=== PATIENT | male | born 1960 | race Caucasian/White ===

== ENCOUNTER 2019-06-07 20:51 | Inpatient (IN) ==
[2019-06-07 21:08] LABS: Basophils # 0.1 10*3/uL (0.0-0.2); Eosinophils # 0.1 10*3/uL (0.0-0.87); Eosinophils % 0.4 % (0.00-10.9); Hematocrit 56.5 VOL% (42.0-52.0); Hemoglobin 18.4 GM/DL (14.0-18.0); Immature Granulocytes % 0.4 %; Immature Granulocytes Absolute 0.05 #; Lymphocytes # 2.4 10*3/uL (1.4-4.0); Lymphocytes % 20.2 % (21.2-54.2); Mean Corpuscular HGB Conc 32.6 GM/DL (32-36); Mean Corpuscular Volume 82.6 FL (87-102); Mean Platelet Volume 10.4 FL (9.6-12.0); Monocytes % 9.1 % (1.7-12.7); Neutrophils % 68.9 % (38.7-73.9); Platelet Count 374 T/CUMM (130-400); Red Blood Count 6.84 MC/CUMM (3.8-5.5); Red Cell Distribution Width 16.2 % (9.3-17.3)
[2019-06-07 21:17] LABS: INR 1.1; PT Patient Result 11.8 SECS (9.6-12.2)
[2019-06-07 21:32] LABS: Bilirubin,Total 1.1 MG/DL (0.2-1.0); Calcium 8.9 MG/DL (8.5-10.1); Osmolality,Calculated 266.7 MOS/KG (273-304); Total Protein 7.3 G/DL (6.4-8.3)
[2019-06-07 22:23] LABS: Apearance,Urine Slightly Hazy (Clear); Bacteria,Urine Many /HPF (Few); Bilirubin,Urine Negative (Negative); Blood, Urine Small mg/dL (Negative); Glucose,Urine (UA) Negative (Negative); Ketones,Urine Negative (Negative); Mucus,Urine Many /LPF (Occasional); Nitrite,Urine Negative (Negative); Protein,Urine 100 MG/DL; RBC,Urine 7 /HPF (0-4); Urine Color Amber (Yellow); Urine Specific Gravity 1.024 (1.001-1.035); WBC,Urine 5 /HPF (0-6)
[2019-06-07 22:26] LABS: Barbiturates Screen,Urine Negative (Negative); Benzodiazepines Screen,Urine Negative (Negative); Cannabinoid Screen,Urine Positive (Negative); Opiate Screen,Urine Negative (Negative); Phencyclidine Screen,Urine Negative (Negative)
[2019-06-07] MEDS ORDERED: ASPIRIN 300 MG SUPP RECTAL STA (22:51)
[2019-06-07] MEDS ORDERED: ATORVASTATIN 40 MG TABLET PO STA (22:51)
[2019-06-07] MEDS ORDERED: ENOXAPARIN 80 MG/0.8 ML SYRINGE SUBCUT STA (22:51)
[2019-06-07] MEDS ORDERED: SODIUM CHLORIDE 0.9% 1,000 ML IV STA (22:52)
[2019-06-07] MEDS ORDERED: GLUCAGON 1 MG VIAL IM PRN (22:54)
[2019-06-07] MEDS ORDERED: DEXTROSE 50% 25 GM/50 ML SYRINGE IV PRN (22:54)
[2019-06-07] MEDS ORDERED: ONDANSETRON 4 MG/2 ML VIAL IV PRN (22:54)
[2019-06-07] MEDS ORDERED: LORazepam 2 MG/1 ML VIAL ONE (23:07)
[2019-06-07] MEDS ORDERED: LORazepam 2 MG/1 ML VIAL IM STA (23:19)
[2019-06-07] MEDS ORDERED: LORazepam 2 MG/1 ML VIAL IV STA (23:19)
[2019-06-08] MEDS: SODIUM CHLORIDE 0.9% 1,000 ML IV SCH ×3 (01:54→21:34)
[2019-06-08] MEDS ORDERED: LORazepam 2 MG/1 ML VIAL IV PRN (04:47)
[2019-06-08] MEDS ORDERED: hydrALAZINE 20 MG/1 ML VIAL IV ONE (05:07)
[2019-06-08 05:46] LABS: Basophils # 0.1 10*3/uL (0.0-0.2); Basophils % 0.8 % (0.0-0.8); Eosinophils # 0.1 10*3/uL (0.0-0.87); Eosinophils % 0.5 % (0.00-10.9); Hematocrit 53.3 VOL% (42.0-52.0); Hemoglobin 17.6 GM/DL (14.0-18.0); Immature Granulocytes % 0.6 %; Immature Granulocytes Absolute 0.08 #; Lymphocytes # 2.3 10*3/uL (1.4-4.0); Lymphocytes % 16.5 % (21.2-54.2); Mean Corpuscular Volume 81.4 FL (87-102); Mean Platelet Volume 10.2 FL (9.6-12.0); Monocytes % 9.5 % (1.7-12.7); Neutrophils % 72.1 % (38.7-73.9); Platelet Count 378 T/CUMM (130-400); Red Blood Count 6.55 MC/CUMM (3.8-5.5); Red Cell Distribution Width 16.1 % (9.3-17.3); White Blood Count 14.2 T/CUMM (4-12)
[2019-06-08 06:10] LABS: Calcium 8.7 MG/DL (8.5-10.1); Osmolality,Calculated 263.5 MOS/KG (273-304); Risk Ratio 6.32; Thyroid Stimulating Hormone 1.99 uIU/ml (0.358-3.74); VLDL CHOLESTEROL 23.2 MG/DL
[2019-06-08] MEDS: amLODIPine 10 MG TABLET PO SCH (09:41)
[2019-06-08] MEDS: ASPIRIN EC 81 MG TABLET PO SCH (09:41)
[2019-06-08] MEDS: LORazepam 2 MG/1 ML VIAL IV PRN ×2 (13:49→17:51)
[2019-06-08] MEDS: HALOPERIDOL 5 MG/ML AMP IM PRN (14:19)
[2019-06-08] MEDS: ENOXAPARIN 40 MG/0.4 ML SYRINGE SUBCUT SCH (21:26)
[2019-06-08] MEDS: ATORVASTATIN 40 MG TABLET PO SCH (21:26)
[2019-06-09] MEDS: SODIUM CHLORIDE 0.9% 1,000 ML IV SCH ×3 (05:18→21:21)
[2019-06-09 05:48] LABS: Basophils # 0.2 10*3/uL (0.0-0.2); Eosinophils % 0.2 % (0.00-10.9); Hematocrit 54.6 VOL% (42.0-52.0); Hemoglobin 17.4 GM/DL (14.0-18.0); Immature Granulocytes % 0.3 %; Immature Granulocytes Absolute 0.05 #; Lymphocytes % 13.3 % (21.2-54.2); Mean Corpuscular HGB Conc 31.9 GM/DL (32-36); Mean Corpuscular Volume 83.7 FL (87-102); Mean Platelet Volume 10.7 FL (9.6-12.0); Monocytes % 13.2 % (1.7-12.7); Platelet Count 396 T/CUMM (130-400); Red Blood Count 6.52 MC/CUMM (3.8-5.5); Red Cell Distribution Width 15.7 % (9.3-17.3); White Blood Count 14.7 T/CUMM (4-12)
[2019-06-09 06:07] LABS: Calcium 8.7 MG/DL (8.5-10.1); Osmolality,Calculated 263.5 MOS/KG (273-304)
[2019-06-09] MEDS: amLODIPine 10 MG TABLET PO SCH (11:12)
[2019-06-09] MEDS: ASPIRIN EC 81 MG TABLET PO SCH (11:12)
[2019-06-09] MEDS: DIAZEPAM 10 MG/2 ML SYRINGE IV SCH ×2 (14:14→21:21)
[2019-06-09] MEDS: ENOXAPARIN 40 MG/0.4 ML SYRINGE SUBCUT SCH (21:21)
[2019-06-09] MEDS: ATORVASTATIN 40 MG TABLET PO SCH (21:28)
[2019-06-09] MEDS: hydrALAZINE 20 MG/1 ML VIAL IV PRN (21:36)
[2019-06-10 05:56] LABS: Basophils # 0.1 10*3/uL (0.0-0.2); Eosinophils # 0.1 10*3/uL (0.0-0.87); Eosinophils % 0.6 % (0.00-10.9); Hemoglobin 17.7 GM/DL (14.0-18.0); Immature Granulocytes % 0.5 %; Immature Granulocytes Absolute 0.07 #; Lymphocytes # 1.7 10*3/uL (1.4-4.0); Lymphocytes % 12.5 % (21.2-54.2); Mean Corpuscular HGB Conc 32.2 GM/DL (32-36); Mean Platelet Volume 10.9 FL (9.6-12.0); Monocytes % 9.4 % (1.7-12.7); Platelet Count 410 T/CUMM (130-400); Red Blood Count 6.63 MC/CUMM (3.8-5.5); Red Cell Distribution Width 15.6 % (9.3-17.3); White Blood Count 13.2 T/CUMM (4-12)
[2019-06-10] MEDS: DIAZEPAM 10 MG/2 ML SYRINGE IV SCH (05:59)
[2019-06-10] MEDS: SODIUM CHLORIDE 0.9% 1,000 ML IV SCH ×4 (06:03→22:03)
[2019-06-10 06:19] LABS: Calcium 8.6 MG/DL (8.5-10.1); Osmolality,Calculated 270.1 MOS/KG (273-304)
[2019-06-10] MEDS: hydrALAZINE 20 MG/1 ML VIAL IV PRN ×2 (07:11→13:01)
[2019-06-10] MEDS: amLODIPine 10 MG TABLET PO SCH ×2 (08:39→16:46)
[2019-06-10] MEDS: ASPIRIN EC 81 MG TABLET PO SCH ×2 (08:39→16:46)
[2019-06-10] MEDS: ATORVASTATIN 40 MG TABLET PO SCH (20:39)
[2019-06-10] MEDS: ENOXAPARIN 40 MG/0.4 ML SYRINGE SUBCUT SCH (20:39)
[2019-06-11] MEDS: hydrALAZINE 20 MG/1 ML VIAL IV PRN (00:59)
[2019-06-11] MEDS: HALOPERIDOL 5 MG/ML AMP IM PRN ×3 (02:32→20:34)
[2019-06-11] MEDS: SODIUM CHLORIDE 0.9% 1,000 ML IV SCH ×3 (06:04→22:50)
[2019-06-11 06:09] LABS: Basophils # 0.1 10*3/uL (0.0-0.2); Eosinophils # 0.1 10*3/uL (0.0-0.87); Eosinophils % 0.9 % (0.00-10.9); Hematocrit 52.1 VOL% (42.0-52.0); Hemoglobin 16.9 GM/DL (14.0-18.0); Immature Granulocytes % 0.2 %; Immature Granulocytes Absolute 0.03 #; Lymphocytes # 1.7 10*3/uL (1.4-4.0); Mean Corpuscular HGB Conc 32.4 GM/DL (32-36); Mean Corpuscular Volume 82.2 FL (87-102); Mean Platelet Volume 10.9 FL (9.6-12.0); Neutrophils % 74.9 % (38.7-73.9); Platelet Count 437 T/CUMM (130-400); Red Blood Count 6.34 MC/CUMM (3.8-5.5); Red Cell Distribution Width 15.5 % (9.3-17.3); White Blood Count 12.1 T/CUMM (4-12)
[2019-06-11 06:38] LABS: Albumin 3.1 G/DL (3.4-5.0); Bilirubin,Direct 0.22 MG/DL (0.0-0.20); Bilirubin,Indirect 0.9 MG/DL (0.0-1.0); Bilirubin,Total 1.1 MG/DL (0.2-1.0); Calcium 8.6 MG/DL (8.5-10.1); Osmolality,Calculated 272.8 MOS/KG (273-304); Total Protein 6.7 G/DL (6.4-8.3)
[2019-06-11] MEDS: LORazepam 2 MG/1 ML VIAL IV PRN ×2 (10:30→20:35)
[2019-06-11] MEDS: amLODIPine 10 MG TABLET PO SCH (11:02)
[2019-06-11] MEDS: ASPIRIN EC 81 MG TABLET PO SCH (11:02)
[2019-06-11] MEDS: lisinopriL 10 MG TABLET PO SCH (12:50)
[2019-06-11] MEDS: ENOXAPARIN 40 MG/0.4 ML SYRINGE SUBCUT SCH (20:33)
[2019-06-11] MEDS: ATORVASTATIN 40 MG TABLET PO SCH (20:36)
[2019-06-12] MEDS: LORazepam 2 MG/1 ML VIAL IV PRN (02:43)
[2019-06-12] MEDS: HALOPERIDOL 5 MG/ML AMP IM PRN (02:44)
[2019-06-12] MEDS: SODIUM CHLORIDE 0.9% 1,000 ML IV SCH ×2 (10:14→14:41)
[2019-06-12] MEDS: lisinopriL 10 MG TABLET PO SCH (10:23)
[2019-06-12] MEDS: ASPIRIN EC 81 MG TABLET PO SCH (10:24)
[2019-06-12] MEDS: amLODIPine 10 MG TABLET PO SCH (10:24)
[2019-06-12] MEDS: ATORVASTATIN 40 MG TABLET PO SCH (21:00)
[2019-06-12] MEDS: ENOXAPARIN 40 MG/0.4 ML SYRINGE SUBCUT SCH (21:00)
[2019-06-13] MEDS: SODIUM CHLORIDE 0.9% 1,000 ML IV SCH ×2 (02:57→23:49)
[2019-06-13 06:03] LABS: Basophils # 0.1 10*3/uL (0.0-0.2); Basophils % 1.4 % (0.0-0.8); Eosinophils # 0.2 10*3/uL (0.0-0.87); Eosinophils % 2.4 % (0.00-10.9); Hematocrit 53.7 VOL% (42.0-52.0); Hemoglobin 17.2 GM/DL (14.0-18.0); Immature Granulocytes % 0.4 %; Immature Granulocytes Absolute 0.04 #; Lymphocytes # 1.9 10*3/uL (1.4-4.0); Lymphocytes % 21.5 % (21.2-54.2); Mean Corpuscular Volume 83.9 FL (87-102); Mean Platelet Volume 10.9 FL (9.6-12.0); Monocytes % 9.8 % (1.7-12.7); Neutrophils % 64.5 % (38.7-73.9); Platelet Count 518 T/CUMM (130-400); Red Cell Distribution Width 15.9 % (9.3-17.3)
[2019-06-13 06:21] LABS: Osmolality,Calculated 273.8 MOS/KG (273-304)
[2019-06-13] MEDS: amLODIPine 10 MG TABLET PO SCH (08:55)
[2019-06-13] MEDS: lisinopriL 10 MG TABLET PO SCH (08:55)
[2019-06-13] MEDS: ASPIRIN EC 81 MG TABLET PO SCH (08:55)
[2019-06-13] MEDS: LORazepam 2 MG/1 ML VIAL IV PRN (15:52)
[2019-06-13] MEDS: hydrALAZINE 20 MG/1 ML VIAL IV PRN (20:47)
[2019-06-13] MEDS: ENOXAPARIN 40 MG/0.4 ML SYRINGE SUBCUT SCH (20:47)
[2019-06-13] MEDS: ATORVASTATIN 40 MG TABLET PO SCH (20:52)
[2019-06-14] MEDS: SODIUM CHLORIDE 0.9% 1,000 ML IV SCH ×2 (05:43→21:53)
[2019-06-14] MEDS: HALOPERIDOL 5 MG/ML AMP IM PRN ×2 (06:22→21:23)
[2019-06-14] MEDS: amLODIPine 10 MG TABLET PO SCH (10:22)
[2019-06-14] MEDS: ASPIRIN EC 81 MG TABLET PO SCH (10:22)
[2019-06-14] MEDS: lisinopriL 10 MG TABLET PO SCH (10:22)
[2019-06-14] MEDS: LORazepam 2 MG/1 ML VIAL IV PRN (12:00)
[2019-06-14] MEDS ORDERED: HALOPERIDOL 5 MG/ML AMP IM ONE (15:42)
[2019-06-14] MEDS: ENOXAPARIN 40 MG/0.4 ML SYRINGE SUBCUT SCH ×2 (21:23→21:56)
[2019-06-14] MEDS: ATORVASTATIN 40 MG TABLET PO SCH ×2 (21:23→21:56)
[2019-06-15] MEDS: HALOPERIDOL 5 MG/ML AMP IM PRN (05:33)
[2019-06-15] MEDS: lisinopriL 10 MG TABLET PO SCH (08:42)
[2019-06-15] MEDS: amLODIPine 10 MG TABLET PO SCH (08:42)
[2019-06-15] MEDS: ASPIRIN EC 81 MG TABLET PO SCH (08:42)
[2019-06-15] MEDS: SODIUM CHLORIDE 0.9% 1,000 ML IV SCH (08:58)
[2019-06-15] MEDS: ATORVASTATIN 40 MG TABLET PO SCH (21:45)
[2019-06-15] MEDS: ENOXAPARIN 40 MG/0.4 ML SYRINGE SUBCUT SCH (21:46)
[2019-06-16] MEDS: SODIUM CHLORIDE 0.9% 1,000 ML IV SCH ×2 (00:20→11:59)
[2019-06-16 05:24] LABS: Calcium 9.4 MG/DL (8.5-10.1); Osmolality,Calculated 273.8 MOS/KG (273-304)
[2019-06-16 06:06] LABS: Basophils # 0.2 10*3/uL (0.0-0.2); Basophils % 1.7 % (0.0-0.8); Eosinophils # 0.1 10*3/uL (0.0-0.87); Eosinophils % 1.4 % (0.00-10.9); Hematocrit 55.7 VOL% (42.0-52.0); Immature Granulocytes % 0.4 %; Immature Granulocytes Absolute 0.04 #; Lymphocytes % 20.8 % (21.2-54.2); Mean Corpuscular HGB Conc 32.3 GM/DL (32-36); Mean Corpuscular Volume 81.6 FL (87-102); Mean Platelet Volume 10.6 FL (9.6-12.0); Monocytes % 8.7 % (1.7-12.7); Platelet Count 641 T/CUMM (130-400); Red Blood Count 6.83 MC/CUMM (3.8-5.5); Red Cell Distribution Width 16.5 % (9.3-17.3); White Blood Count 9.4 T/CUMM (4-12)
[2019-06-16] MEDS: amLODIPine 10 MG TABLET PO SCH (09:25)
[2019-06-16] MEDS: lisinopriL 10 MG TABLET PO SCH (09:25)
[2019-06-16] MEDS: ASPIRIN EC 81 MG TABLET PO SCH (09:25)
[2019-06-16] MEDS: ENOXAPARIN 40 MG/0.4 ML SYRINGE SUBCUT SCH (22:21)
[2019-06-16] MEDS: ATORVASTATIN 40 MG TABLET PO SCH (22:21)
[2019-06-17] MEDS: SODIUM CHLORIDE 0.9% 1,000 ML IV SCH ×2 (03:25→15:42)
[2019-06-17] MEDS: HALOPERIDOL 5 MG/ML AMP IM PRN (04:42)
[2019-06-17] MEDS: lisinopriL 10 MG TABLET PO SCH (08:29)
[2019-06-17] MEDS: amLODIPine 10 MG TABLET PO SCH (08:29)
[2019-06-17] MEDS: ASPIRIN EC 81 MG TABLET PO SCH (08:29)
[2019-06-17] MEDS: ENOXAPARIN 40 MG/0.4 ML SYRINGE SUBCUT SCH (23:15)
[2019-06-17] MEDS: ATORVASTATIN 40 MG TABLET PO SCH (23:15)
[2019-06-18] MEDS: SODIUM CHLORIDE 0.9% 1,000 ML IV SCH (07:14)
[2019-06-18] MEDS: ASPIRIN EC 81 MG TABLET PO SCH (08:55)
[2019-06-18] MEDS: amLODIPine 10 MG TABLET PO SCH (08:55)
[2019-06-18] MEDS: lisinopriL 10 MG TABLET PO SCH (08:55)
[2019-06-18] MEDS: ATORVASTATIN 40 MG TABLET PO SCH (21:55)
[2019-06-18] MEDS: ENOXAPARIN 40 MG/0.4 ML SYRINGE SUBCUT SCH (21:55)
[2019-06-18] MEDS: IBUPROFEN 600 MG TABLET PO PRN (22:59)
[2019-06-18] MEDS: HALOPERIDOL 5 MG/ML AMP IM PRN (23:47)
[2019-06-19] MEDS: lisinopriL 10 MG TABLET PO SCH (09:22)
[2019-06-19] MEDS: amLODIPine 10 MG TABLET PO SCH (09:22)
[2019-06-19] MEDS: ASPIRIN EC 81 MG TABLET PO SCH (09:22)
[2019-06-19] MEDS: ENOXAPARIN 40 MG/0.4 ML SYRINGE SUBCUT SCH (21:55)
[2019-06-19] MEDS: ATORVASTATIN 40 MG TABLET PO SCH (21:55)
[2019-06-20] MEDS: amLODIPine 10 MG TABLET PO SCH (09:01)
[2019-06-20] MEDS: ASPIRIN EC 81 MG TABLET PO SCH (09:01)
[2019-06-20] MEDS: lisinopriL 10 MG TABLET PO SCH (09:01)
[2019-06-20] MEDS: HALOPERIDOL 5 MG/ML AMP IM PRN (14:46)
[2019-06-20] MEDS: ATORVASTATIN 40 MG TABLET PO SCH (20:58)
[2019-06-20] MEDS: ENOXAPARIN 40 MG/0.4 ML SYRINGE SUBCUT SCH (20:58)
[2019-06-21] MEDS: lisinopriL 10 MG TABLET PO SCH (08:46)
[2019-06-21] MEDS: ASPIRIN EC 81 MG TABLET PO SCH (08:46)
[2019-06-21] MEDS: amLODIPine 10 MG TABLET PO SCH (08:46)
[2019-06-21] MEDS: HALOPERIDOL 5 MG/ML AMP IM PRN (10:08)
[2019-06-21] MEDS: NICOTINE 21 MG/24 HR PATCH TRANSDERM SCH ×2 (16:37→17:14)
[2019-06-21] MEDS: buPROPion 100 MG TABLET PO SCH (20:58)
[2019-06-21] MEDS: ATORVASTATIN 40 MG TABLET PO SCH (20:59)
[2019-06-22] MEDS: ASPIRIN EC 81 MG TABLET PO SCH (08:15)
[2019-06-22] MEDS: amLODIPine 10 MG TABLET PO SCH (08:15)
[2019-06-22] MEDS: buPROPion 100 MG TABLET PO SCH ×2 (08:15→21:16)
[2019-06-22] MEDS: NICOTINE 21 MG/24 HR PATCH TRANSDERM SCH (08:15)
[2019-06-22] MEDS: lisinopriL 10 MG TABLET PO SCH (08:15)
[2019-06-22] MEDS: CLOPIDOGREL 75 MG TABLET PO SCH (08:15)
[2019-06-22] MEDS: ATORVASTATIN 40 MG TABLET PO SCH (21:16)
[2019-06-23] MEDS: NICOTINE 21 MG/24 HR PATCH TRANSDERM SCH (09:23)
[2019-06-23] MEDS: CLOPIDOGREL 75 MG TABLET PO SCH (09:24)
[2019-06-23] MEDS: lisinopriL 10 MG TABLET PO SCH (09:24)
[2019-06-23] MEDS: amLODIPine 10 MG TABLET PO SCH (09:24)
[2019-06-23] MEDS: ASPIRIN EC 81 MG TABLET PO SCH (09:24)
[2019-06-23] MEDS: buPROPion 100 MG TABLET PO SCH ×2 (09:25→20:10)
[2019-06-23] MEDS: ATORVASTATIN 40 MG TABLET PO SCH (20:09)
[2019-06-24] MEDS: CLOPIDOGREL 75 MG TABLET PO SCH (08:40)
[2019-06-24] MEDS: lisinopriL 10 MG TABLET PO SCH (08:40)
[2019-06-24] MEDS: amLODIPine 10 MG TABLET PO SCH (08:40)
[2019-06-24] MEDS: buPROPion 100 MG TABLET PO SCH ×2 (08:40→21:14)
[2019-06-24] MEDS: NICOTINE 21 MG/24 HR PATCH TRANSDERM SCH (08:40)
[2019-06-24] MEDS: ASPIRIN EC 81 MG TABLET PO SCH (08:40)
[2019-06-24] MEDS ORDERED: HALOPERIDOL 5 MG/ML AMP IV ONE (09:05)
[2019-06-24] MEDS ORDERED: LORazepam 2 MG/1 ML VIAL IV ONE (09:05)
[2019-06-24] MEDS ORDERED: diphenhydrAMINE 50 MG/1 ML VIAL IV ONE (09:06)
[2019-06-24] MEDS: ATORVASTATIN 40 MG TABLET PO SCH (21:14)
[2019-06-24] MEDS: HALOPERIDOL 5 MG/ML AMP IM PRN (22:42)
[2019-06-25] MEDS: NICOTINE 21 MG/24 HR PATCH TRANSDERM SCH (09:29)
[2019-06-25] MEDS: buPROPion 100 MG TABLET PO SCH ×2 (09:30→20:31)
[2019-06-25] MEDS: CLOPIDOGREL 75 MG TABLET PO SCH (09:30)
[2019-06-25] MEDS: amLODIPine 10 MG TABLET PO SCH (09:30)
[2019-06-25] MEDS: lisinopriL 10 MG TABLET PO SCH (09:30)
[2019-06-25] MEDS: ASPIRIN EC 81 MG TABLET PO SCH (09:31)
[2019-06-25] MEDS: ATORVASTATIN 40 MG TABLET PO SCH (20:31)
[2019-06-25] MEDS: DOCUSATE SODIUM 100 MG CAPSULE PO SCH (20:35)
[2019-06-26] MEDS: NICOTINE 21 MG/24 HR PATCH TRANSDERM SCH (08:44)
[2019-06-26] MEDS: CLOPIDOGREL 75 MG TABLET PO SCH (08:45)
[2019-06-26] MEDS: amLODIPine 10 MG TABLET PO SCH (08:45)
[2019-06-26] MEDS: buPROPion 100 MG TABLET PO SCH ×2 (08:45→20:22)
[2019-06-26] MEDS: DOCUSATE SODIUM 100 MG CAPSULE PO SCH ×2 (08:45→20:22)
[2019-06-26] MEDS: ASPIRIN EC 81 MG TABLET PO SCH (08:45)
[2019-06-26] MEDS: lisinopriL 10 MG TABLET PO SCH (08:45)
[2019-06-26] MEDS: HALOPERIDOL 5 MG/ML AMP IM PRN (10:13)
[2019-06-26] MEDS: ATORVASTATIN 40 MG TABLET PO SCH (20:22)
[2019-06-27] MEDS: NICOTINE 21 MG/24 HR PATCH TRANSDERM SCH (08:45)
[2019-06-27] MEDS: buPROPion 100 MG TABLET PO SCH ×2 (08:45→21:01)
[2019-06-27] MEDS: lisinopriL 10 MG TABLET PO SCH (08:45)
[2019-06-27] MEDS: DOCUSATE SODIUM 100 MG CAPSULE PO SCH ×2 (08:45→21:01)
[2019-06-27] MEDS: ASPIRIN EC 81 MG TABLET PO SCH (08:45)
[2019-06-27] MEDS: amLODIPine 10 MG TABLET PO SCH (08:45)
[2019-06-27] MEDS: CLOPIDOGREL 75 MG TABLET PO SCH (08:45)
[2019-06-27] MEDS: HALOPERIDOL 5 MG/ML AMP IM PRN ×2 (10:43→22:51)
[2019-06-27] MEDS: ATORVASTATIN 40 MG TABLET PO SCH (21:01)
[2019-06-28] MEDS: CLOPIDOGREL 75 MG TABLET PO SCH (08:42)
[2019-06-28] MEDS: DOCUSATE SODIUM 100 MG CAPSULE PO SCH ×2 (08:42→21:35)
[2019-06-28] MEDS: ASPIRIN EC 81 MG TABLET PO SCH (08:42)
[2019-06-28] MEDS: lisinopriL 10 MG TABLET PO SCH (08:42)
[2019-06-28] MEDS: amLODIPine 10 MG TABLET PO SCH (08:42)
[2019-06-28] MEDS: NICOTINE 21 MG/24 HR PATCH TRANSDERM SCH (08:43)
[2019-06-28] MEDS: buPROPion 100 MG TABLET PO SCH ×2 (08:43→21:35)
[2019-06-28] MEDS: ATORVASTATIN 40 MG TABLET PO SCH (21:34)
[2019-06-28] MEDS: IBUPROFEN 600 MG TABLET PO PRN (21:35)
[2019-06-28] MEDS: HALOPERIDOL 5 MG/ML AMP IM PRN (23:30)
[2019-06-29] MEDS: DOCUSATE SODIUM 100 MG CAPSULE PO SCH ×2 (08:19→20:52)
[2019-06-29] MEDS: CLOPIDOGREL 75 MG TABLET PO SCH (08:19)
[2019-06-29] MEDS: ASPIRIN EC 81 MG TABLET PO SCH (08:20)
[2019-06-29] MEDS: NICOTINE 21 MG/24 HR PATCH TRANSDERM SCH (08:20)
[2019-06-29] MEDS: amLODIPine 10 MG TABLET PO SCH (08:20)
[2019-06-29] MEDS: buPROPion 100 MG TABLET PO SCH ×2 (08:21→20:52)
[2019-06-29] MEDS: lisinopriL 10 MG TABLET PO SCH (08:22)
[2019-06-29] MEDS: ATORVASTATIN 40 MG TABLET PO SCH (20:52)
[2019-06-29] MEDS: HALOPERIDOL 5 MG/ML AMP IM PRN (21:00)
[2019-06-30] MEDS: HALOPERIDOL 5 MG/ML AMP IM PRN (08:13)
[2019-06-30] MEDS: NICOTINE 21 MG/24 HR PATCH TRANSDERM SCH (08:20)
[2019-06-30] MEDS: CLOPIDOGREL 75 MG TABLET PO SCH (08:21)
[2019-06-30] MEDS: ASPIRIN EC 81 MG TABLET PO SCH (08:21)
[2019-06-30] MEDS: lisinopriL 10 MG TABLET PO SCH (08:21)
[2019-06-30] MEDS: amLODIPine 10 MG TABLET PO SCH (08:21)
[2019-06-30] MEDS: buPROPion 100 MG TABLET PO SCH ×2 (08:21→21:39)
[2019-06-30] MEDS: DOCUSATE SODIUM 100 MG CAPSULE PO SCH ×2 (08:21→21:40)
[2019-06-30] MEDS: ATORVASTATIN 40 MG TABLET PO SCH (21:38)
[2019-07-01] MEDS: CLOPIDOGREL 75 MG TABLET PO SCH (09:08)
[2019-07-01] MEDS: lisinopriL 10 MG TABLET PO SCH (09:08)
[2019-07-01] MEDS: buPROPion 100 MG TABLET PO SCH ×2 (09:08→20:46)
[2019-07-01] MEDS: amLODIPine 10 MG TABLET PO SCH (09:08)
[2019-07-01] MEDS: ASPIRIN EC 81 MG TABLET PO SCH (09:08)
[2019-07-01] MEDS: DOCUSATE SODIUM 100 MG CAPSULE PO SCH ×2 (09:09→20:46)
[2019-07-01] MEDS: NICOTINE 21 MG/24 HR PATCH TRANSDERM SCH (09:09)
[2019-07-01] MEDS: ATORVASTATIN 40 MG TABLET PO SCH (20:46)
[2019-07-02] MEDS: DOCUSATE SODIUM 100 MG CAPSULE PO SCH ×3 (08:53→20:19)
[2019-07-02] MEDS: ASPIRIN EC 81 MG TABLET PO SCH (08:53)
[2019-07-02] MEDS: NICOTINE 21 MG/24 HR PATCH TRANSDERM SCH (08:53)
[2019-07-02] MEDS: lisinopriL 10 MG TABLET PO SCH (08:54)
[2019-07-02] MEDS: CLOPIDOGREL 75 MG TABLET PO SCH (08:54)
[2019-07-02] MEDS: buPROPion 100 MG TABLET PO SCH ×2 (08:54→20:19)
[2019-07-02] MEDS: amLODIPine 10 MG TABLET PO SCH (08:54)
[2019-07-02] MEDS: ATORVASTATIN 40 MG TABLET PO SCH (20:19)
[2019-07-03] MEDS: NICOTINE 21 MG/24 HR PATCH TRANSDERM SCH (09:10)
[2019-07-03] MEDS: lisinopriL 10 MG TABLET PO SCH (09:11)
[2019-07-03] MEDS: CLOPIDOGREL 75 MG TABLET PO SCH (09:11)
[2019-07-03] MEDS: amLODIPine 10 MG TABLET PO SCH (09:11)
[2019-07-03] MEDS: DOCUSATE SODIUM 100 MG CAPSULE PO SCH ×2 (09:12→21:18)
[2019-07-03] MEDS: ASPIRIN EC 81 MG TABLET PO SCH (09:12)
[2019-07-03] MEDS: buPROPion 100 MG TABLET PO SCH ×2 (09:12→21:18)
[2019-07-03] MEDS: ATORVASTATIN 40 MG TABLET PO SCH (21:18)
[2019-07-03] MEDS: HALOPERIDOL 5 MG/ML AMP IM PRN (21:18)
[2019-07-04] MEDS: NICOTINE 21 MG/24 HR PATCH TRANSDERM SCH (09:27)
[2019-07-04] MEDS: ASPIRIN EC 81 MG TABLET PO SCH (09:28)
[2019-07-04] MEDS: lisinopriL 10 MG TABLET PO SCH (09:28)
[2019-07-04] MEDS: CLOPIDOGREL 75 MG TABLET PO SCH (09:29)
[2019-07-04] MEDS: buPROPion 100 MG TABLET PO SCH ×2 (09:29→21:15)
[2019-07-04] MEDS: amLODIPine 10 MG TABLET PO SCH (09:29)
[2019-07-04] MEDS: DOCUSATE SODIUM 100 MG CAPSULE PO SCH ×2 (09:29→21:15)
[2019-07-04] MEDS: ATORVASTATIN 40 MG TABLET PO SCH (21:15)
[2019-07-05] MEDS: buPROPion 100 MG TABLET PO SCH ×2 (10:01→20:44)
[2019-07-05] MEDS: lisinopriL 10 MG TABLET PO SCH (10:01)
[2019-07-05] MEDS: DOCUSATE SODIUM 100 MG CAPSULE PO SCH ×2 (10:01→20:44)
[2019-07-05] MEDS: NICOTINE 21 MG/24 HR PATCH TRANSDERM SCH (10:01)
[2019-07-05] MEDS: amLODIPine 10 MG TABLET PO SCH (10:02)
[2019-07-05] MEDS: CLOPIDOGREL 75 MG TABLET PO SCH (10:02)
[2019-07-05] MEDS: ASPIRIN EC 81 MG TABLET PO SCH (10:02)
[2019-07-05] MEDS: ATORVASTATIN 40 MG TABLET PO SCH (20:44)
[2019-07-06] MEDS: NICOTINE 21 MG/24 HR PATCH TRANSDERM SCH (09:24)
[2019-07-06] MEDS: amLODIPine 10 MG TABLET PO SCH (09:24)
[2019-07-06] MEDS: CLOPIDOGREL 75 MG TABLET PO SCH (09:24)
[2019-07-06] MEDS: buPROPion 100 MG TABLET PO SCH ×2 (09:24→20:10)
[2019-07-06] MEDS: lisinopriL 10 MG TABLET PO SCH (09:24)
[2019-07-06] MEDS: DOCUSATE SODIUM 100 MG CAPSULE PO SCH ×2 (09:24→20:10)
[2019-07-06] MEDS: ASPIRIN EC 81 MG TABLET PO SCH (09:24)
[2019-07-06] MEDS: ATORVASTATIN 40 MG TABLET PO SCH (20:10)
[2019-07-07] MEDS: NICOTINE 21 MG/24 HR PATCH TRANSDERM SCH (08:25)
[2019-07-07] MEDS: buPROPion 100 MG TABLET PO SCH ×2 (08:25→20:47)
[2019-07-07] MEDS: lisinopriL 10 MG TABLET PO SCH (08:25)
[2019-07-07] MEDS: CLOPIDOGREL 75 MG TABLET PO SCH (08:25)
[2019-07-07] MEDS: amLODIPine 10 MG TABLET PO SCH (08:25)
[2019-07-07] MEDS: ASPIRIN EC 81 MG TABLET PO SCH (08:25)
[2019-07-07] MEDS: DOCUSATE SODIUM 100 MG CAPSULE PO SCH ×2 (08:25→20:47)
[2019-07-07] MEDS: ATORVASTATIN 40 MG TABLET PO SCH (20:47)
[2019-07-08] MEDS: NICOTINE 21 MG/24 HR PATCH TRANSDERM SCH (09:13)
[2019-07-08] MEDS: buPROPion 100 MG TABLET PO SCH ×2 (09:14→21:14)
[2019-07-08] MEDS: CLOPIDOGREL 75 MG TABLET PO SCH (09:14)
[2019-07-08] MEDS: DOCUSATE SODIUM 100 MG CAPSULE PO SCH ×2 (09:14→21:14)
[2019-07-08] MEDS: amLODIPine 10 MG TABLET PO SCH (09:14)
[2019-07-08] MEDS: lisinopriL 10 MG TABLET PO SCH (09:14)
[2019-07-08] MEDS: ASPIRIN EC 81 MG TABLET PO SCH (09:14)
[2019-07-08] MEDS: ATORVASTATIN 40 MG TABLET PO SCH (21:13)
[2019-07-09] MEDS: NICOTINE 21 MG/24 HR PATCH TRANSDERM SCH (09:44)
[2019-07-09] MEDS: amLODIPine 10 MG TABLET PO SCH (09:44)
[2019-07-09] MEDS: buPROPion 100 MG TABLET PO SCH ×2 (09:44→21:09)
[2019-07-09] MEDS: ASPIRIN EC 81 MG TABLET PO SCH (09:44)
[2019-07-09] MEDS: CLOPIDOGREL 75 MG TABLET PO SCH (09:44)
[2019-07-09] MEDS: DOCUSATE SODIUM 100 MG CAPSULE PO SCH ×2 (09:44→21:09)
[2019-07-09] MEDS: lisinopriL 10 MG TABLET PO SCH (09:44)
[2019-07-09] MEDS: ATORVASTATIN 40 MG TABLET PO SCH (21:09)
[2019-07-10] MEDS: amLODIPine 10 MG TABLET PO SCH (10:37)
[2019-07-10] MEDS: DOCUSATE SODIUM 100 MG CAPSULE PO SCH ×2 (10:37→20:15)
[2019-07-10] MEDS: ASPIRIN EC 81 MG TABLET PO SCH (10:37)
[2019-07-10] MEDS: CLOPIDOGREL 75 MG TABLET PO SCH (10:37)
[2019-07-10] MEDS: buPROPion 100 MG TABLET PO SCH ×2 (10:37→20:15)
[2019-07-10] MEDS: lisinopriL 10 MG TABLET PO SCH (10:37)
[2019-07-10] MEDS: NICOTINE 21 MG/24 HR PATCH TRANSDERM SCH (10:38)
[2019-07-10] MEDS: ATORVASTATIN 40 MG TABLET PO SCH (20:15)
[2019-07-11] MEDS: CLOPIDOGREL 75 MG TABLET PO SCH (09:28)
[2019-07-11] MEDS: lisinopriL 10 MG TABLET PO SCH (09:28)
[2019-07-11] MEDS: NICOTINE 21 MG/24 HR PATCH TRANSDERM SCH (09:28)
[2019-07-11] MEDS: amLODIPine 10 MG TABLET PO SCH (09:29)
[2019-07-11] MEDS: ASPIRIN EC 81 MG TABLET PO SCH (09:29)
[2019-07-11] MEDS: buPROPion 100 MG TABLET PO SCH ×2 (09:29→20:32)
[2019-07-11] MEDS: DOCUSATE SODIUM 100 MG CAPSULE PO SCH ×2 (09:29→20:32)
[2019-07-11] MEDS: ATORVASTATIN 40 MG TABLET PO SCH (20:32)
[2019-07-12] MEDS: ASPIRIN EC 81 MG TABLET PO SCH (08:57)
[2019-07-12] MEDS: NICOTINE 21 MG/24 HR PATCH TRANSDERM SCH (08:57)
[2019-07-12] MEDS: lisinopriL 10 MG TABLET PO SCH (08:57)
[2019-07-12] MEDS: buPROPion 100 MG TABLET PO SCH ×2 (08:57→20:13)
[2019-07-12] MEDS: amLODIPine 10 MG TABLET PO SCH (08:57)
[2019-07-12] MEDS: DOCUSATE SODIUM 100 MG CAPSULE PO SCH ×2 (08:57→20:13)
[2019-07-12] MEDS: CLOPIDOGREL 75 MG TABLET PO SCH (08:57)
[2019-07-12 09:28] LABS: Basophils # 0.2 10*3/uL (0.0-0.2); Basophils % 1.3 % (0.0-0.8); Eosinophils # 0.2 10*3/uL (0.0-0.87); Hematocrit 51.3 VOL% (42.0-52.0); Hemoglobin 16.5 GM/DL (14.0-18.0); Immature Granulocytes % 0.4 %; Immature Granulocytes Absolute 0.05 #; Lymphocytes # 2.1 10*3/uL (1.4-4.0); Lymphocytes % 18.4 % (21.2-54.2); Mean Corpuscular HGB Conc 32.2 GM/DL (32-36); Mean Corpuscular Volume 82.9 FL (87-102); Monocytes % 7.1 % (1.7-12.7); Neutrophils % 70.8 % (38.7-73.9); Platelet Count 776 T/CUMM (130-400); Red Blood Count 6.19 MC/CUMM (3.8-5.5); Red Cell Distribution Width 16.9 % (9.3-17.3); White Blood Count 11.5 T/CUMM (4-12)
[2019-07-12 09:54] LABS: Calcium 9.5 MG/DL (8.5-10.1); Osmolality,Calculated 270.2 MOS/KG (273-304)
[2019-07-12] MEDS: ATORVASTATIN 40 MG TABLET PO SCH (20:13)
[2019-07-13 07:15] LABS: Basophils # 0.2 10*3/uL (0.0-0.2); Basophils % 1.5 % (0.0-0.8); Eosinophils # 0.2 10*3/uL (0.0-0.87); Hematocrit 52.5 VOL% (42.0-52.0); Hemoglobin 16.8 GM/DL (14.0-18.0); Immature Granulocytes % 0.4 %; Immature Granulocytes Absolute 0.04 #; Lymphocytes # 2.3 10*3/uL (1.4-4.0); Lymphocytes % 20.6 % (21.2-54.2); Mean Corpuscular Volume 82.4 FL (87-102); Mean Platelet Volume 9.9 FL (9.6-12.0); Neutrophils % 66.5 % (38.7-73.9); Platelet Count 788 T/CUMM (130-400); Red Blood Count 6.37 MC/CUMM (3.8-5.5); Red Cell Distribution Width 17.1 % (9.3-17.3)
[2019-07-13 07:28] LABS: Calcium 9.6 MG/DL (8.5-10.1); Osmolality,Calculated 269.2 MOS/KG (273-304)
[2019-07-13] MEDS: CLOPIDOGREL 75 MG TABLET PO SCH (08:38)
[2019-07-13] MEDS: lisinopriL 10 MG TABLET PO SCH (08:38)
[2019-07-13] MEDS: DOCUSATE SODIUM 100 MG CAPSULE PO SCH ×2 (08:38→20:47)
[2019-07-13] MEDS: ASPIRIN EC 81 MG TABLET PO SCH (08:38)
[2019-07-13] MEDS: amLODIPine 10 MG TABLET PO SCH (08:38)
[2019-07-13] MEDS: buPROPion 100 MG TABLET PO SCH ×2 (08:39→20:47)
[2019-07-13] MEDS: NICOTINE 21 MG/24 HR PATCH TRANSDERM SCH (08:39)
[2019-07-13] MEDS: ATORVASTATIN 40 MG TABLET PO SCH (20:47)
[2019-07-14] MEDS: amLODIPine 10 MG TABLET PO SCH (08:57)
[2019-07-14] MEDS: DOCUSATE SODIUM 100 MG CAPSULE PO SCH ×2 (08:57→21:04)
[2019-07-14] MEDS: buPROPion 100 MG TABLET PO SCH ×2 (08:57→21:04)
[2019-07-14] MEDS: lisinopriL 10 MG TABLET PO SCH (08:57)
[2019-07-14] MEDS: CLOPIDOGREL 75 MG TABLET PO SCH (08:57)
[2019-07-14] MEDS: ASPIRIN EC 81 MG TABLET PO SCH (08:57)
[2019-07-14] MEDS: NICOTINE 21 MG/24 HR PATCH TRANSDERM SCH (08:58)
[2019-07-14] MEDS: ATORVASTATIN 40 MG TABLET PO SCH (21:04)
[2019-07-15] MEDS: ASPIRIN EC 81 MG TABLET PO SCH (09:15)
[2019-07-15] MEDS: DOCUSATE SODIUM 100 MG CAPSULE PO SCH ×2 (09:16→20:46)
[2019-07-15] MEDS: CLOPIDOGREL 75 MG TABLET PO SCH (09:16)
[2019-07-15] MEDS: NICOTINE 21 MG/24 HR PATCH TRANSDERM SCH (09:16)
[2019-07-15] MEDS: amLODIPine 10 MG TABLET PO SCH (09:16)
[2019-07-15] MEDS: lisinopriL 10 MG TABLET PO SCH (09:17)
[2019-07-15] MEDS: buPROPion 100 MG TABLET PO SCH ×2 (09:17→20:46)
[2019-07-15] MEDS: ATORVASTATIN 40 MG TABLET PO SCH (20:46)
[2019-07-16] MEDS: ASPIRIN EC 81 MG TABLET PO SCH (09:22)
[2019-07-16] MEDS: NICOTINE 21 MG/24 HR PATCH TRANSDERM SCH (09:22)
[2019-07-16] MEDS: DOCUSATE SODIUM 100 MG CAPSULE PO SCH ×2 (09:22→20:50)
[2019-07-16] MEDS: amLODIPine 10 MG TABLET PO SCH (09:22)
[2019-07-16] MEDS: lisinopriL 10 MG TABLET PO SCH (09:22)
[2019-07-16] MEDS: CLOPIDOGREL 75 MG TABLET PO SCH (09:22)
[2019-07-16] MEDS: buPROPion 100 MG TABLET PO SCH ×2 (09:23→20:50)
[2019-07-16] MEDS: ATORVASTATIN 40 MG TABLET PO SCH (20:50)
[2019-07-17] MEDS: amLODIPine 10 MG TABLET PO SCH (09:21)
[2019-07-17] MEDS: NICOTINE 21 MG/24 HR PATCH TRANSDERM SCH (09:21)
[2019-07-17] MEDS: CLOPIDOGREL 75 MG TABLET PO SCH (09:21)
[2019-07-17] MEDS: buPROPion 100 MG TABLET PO SCH ×2 (09:22→21:08)
[2019-07-17] MEDS: DOCUSATE SODIUM 100 MG CAPSULE PO SCH ×2 (09:22→21:08)
[2019-07-17] MEDS: lisinopriL 10 MG TABLET PO SCH (09:22)
[2019-07-17] MEDS: ASPIRIN EC 81 MG TABLET PO SCH (09:22)
[2019-07-17] MEDS: ATORVASTATIN 40 MG TABLET PO SCH (21:08)
[2019-07-18] MEDS: ASPIRIN EC 81 MG TABLET PO SCH (09:14)
[2019-07-18] MEDS: buPROPion 100 MG TABLET PO SCH ×2 (09:14→21:00)
[2019-07-18] MEDS: amLODIPine 10 MG TABLET PO SCH (09:14)
[2019-07-18] MEDS: DOCUSATE SODIUM 100 MG CAPSULE PO SCH ×2 (09:14→21:00)
[2019-07-18] MEDS: lisinopriL 10 MG TABLET PO SCH (09:14)
[2019-07-18] MEDS: NICOTINE 21 MG/24 HR PATCH TRANSDERM SCH (09:14)
[2019-07-18] MEDS: CLOPIDOGREL 75 MG TABLET PO SCH (09:14)
[2019-07-18] MEDS: ATORVASTATIN 40 MG TABLET PO SCH (21:00)
[2019-07-19] MEDS: NICOTINE 21 MG/24 HR PATCH TRANSDERM SCH (08:55)
[2019-07-19] MEDS: buPROPion 100 MG TABLET PO SCH ×2 (08:56→20:24)
[2019-07-19] MEDS: DOCUSATE SODIUM 100 MG CAPSULE PO SCH ×2 (08:56→20:24)
[2019-07-19] MEDS: amLODIPine 10 MG TABLET PO SCH (08:56)
[2019-07-19] MEDS: CLOPIDOGREL 75 MG TABLET PO SCH (08:56)
[2019-07-19] MEDS: lisinopriL 10 MG TABLET PO SCH (08:56)
[2019-07-19] MEDS: ASPIRIN EC 81 MG TABLET PO SCH (08:56)
[2019-07-19] MEDS: ATORVASTATIN 40 MG TABLET PO SCH (20:24)
[2019-07-20] MEDS: ASPIRIN EC 81 MG TABLET PO SCH (09:43)
[2019-07-20] MEDS: amLODIPine 10 MG TABLET PO SCH (09:43)
[2019-07-20] MEDS: DOCUSATE SODIUM 100 MG CAPSULE PO SCH ×2 (09:43→20:27)
[2019-07-20] MEDS: NICOTINE 21 MG/24 HR PATCH TRANSDERM SCH (09:44)
[2019-07-20] MEDS: lisinopriL 10 MG TABLET PO SCH (09:44)
[2019-07-20] MEDS: buPROPion 100 MG TABLET PO SCH ×2 (09:44→20:27)
[2019-07-20] MEDS: CLOPIDOGREL 75 MG TABLET PO SCH (09:44)
[2019-07-20] MEDS: ATORVASTATIN 40 MG TABLET PO SCH (20:27)
[2019-07-21] MEDS: NICOTINE 21 MG/24 HR PATCH TRANSDERM SCH (08:59)
[2019-07-21] MEDS: DOCUSATE SODIUM 100 MG CAPSULE PO SCH ×2 (08:59→21:18)
[2019-07-21] MEDS: ASPIRIN EC 81 MG TABLET PO SCH (08:59)
[2019-07-21] MEDS: buPROPion 100 MG TABLET PO SCH ×2 (09:00→21:18)
[2019-07-21] MEDS: amLODIPine 10 MG TABLET PO SCH (09:00)
[2019-07-21] MEDS: lisinopriL 10 MG TABLET PO SCH (09:00)
[2019-07-21] MEDS: CLOPIDOGREL 75 MG TABLET PO SCH (09:00)
[2019-07-21] MEDS: ATORVASTATIN 40 MG TABLET PO SCH (21:18)
[2019-07-22] MEDS: CLOPIDOGREL 75 MG TABLET PO SCH (08:19)
[2019-07-22] MEDS: DOCUSATE SODIUM 100 MG CAPSULE PO SCH (08:19)
[2019-07-22] MEDS: ASPIRIN EC 81 MG TABLET PO SCH (08:19)
[2019-07-22] MEDS: NICOTINE 21 MG/24 HR PATCH TRANSDERM SCH (08:20)
[2019-07-22] MEDS: buPROPion 100 MG TABLET PO SCH (08:20)
[2019-07-22] MEDS: lisinopriL 10 MG TABLET PO SCH (08:20)
[2019-07-22] MEDS: amLODIPine 10 MG TABLET PO SCH (08:20)
[2019-07-22 08:42] VITALS: BP 118/70
== END 2019-07-22 12:00 | disposition home or self-care (01) | DRG 64 ==
LOC: EDUNIT# → EDBD → N.ED 20:51 → N.EDINP 22:54 → SUATTDRO 22:54 → SUPCPDRO 22:54 → N.5E 06-08 01:23 → N.TELEN 06-13 10:37 → N.TELES 06-18 17:11 → N.3E 06-30 18:05
PROVIDERS: ADMIT Internal Medicine; ATTEND Internal Medicine